=== PATIENT | female | born 1965 | race Caucasian/White ===

== ENCOUNTER 2017-09-28 15:03 | Outpatient (CLI) | payer BC ==
--- NOTE | 2017-10-02 13:10 | Mammography Report ---
DIGITAL SCREENING MAMMOGRAM: 09/28/2017 CLINICAL INDICATION: A 52-year-old with family history of breast cancer, personal history of benign left breast biopsy, for screening. COMPARISON: Films from [place], [place] dated 09/13/2016, 08/25/2016, 08/24/2015, 07/29/2014. TECHNIQUE: Routine CC and MLO projections were obtained of the breasts. FINDINGS: The breasts again demonstrate heterogeneously dense fibroglandular parenchyma bilaterally. Biopsy marker in the left upper central breast is stable. Punctate, typically benign calcifications are present. No suspicious masses, clustered microcalcifications, or regions of architectural distortion are identified. IMPRESSION: BENIGN FINDINGS. RECOMMENDATION: ROUTINE ANNUAL SCREENING UNLESS OTHERWISE CLINICALLY INDICATED. BIRADS CATEGORY 2-BENIGN FINDINGS. STANDARD QUALIFYING STATEMENTS: 1. This examination was reviewed with the aid of Computer-Aided Detection (CAD). 2. A negative or benign imaging report should not delay biopsy if clinically suspicious findings are present. Consider surgical consultation if warranted. More than 5% of cancers are not identified by imaging. 3. Dense breasts may obscure an underlying neoplasm. TD: 10/02/2017 13:10
== END 2017-09-28 15:04 | disposition home or self-care (01) ==
LOC: DI.N 15:03
PROVIDERS: ATTEND Family Medicine
DX: Z12.31 Encounter for screening mammogram for malignant neoplasm of breast (principal); Z80.3 Family history of malignant neoplasm of breast
CPT/HCPCS: 77067

== ENCOUNTER 2019-12-27 12:17 | Outpatient (CLI) | payer BC, OTHER ==
--- NOTE | 2019-12-27 13:17 | XRAY Report ---
Reason: ARTHRALGIAS Procedure Date: 12/27/2019 Accession Number: [id number] / [id number] Procedure: WCP - Hand 2 View BILAT CPT Code: Final Report FULL RESULT: PROCEDURE: Hand 2 View BILAT INDICATIONS: ARTHRALGIAS TECHNIQUE: 2 views of each hand(s) acquired. COMPARISON: None FINDINGS: Bones: No fractures or dislocations. No suspicious bony lesions. Soft tissues: No suspicious soft tissue calcifications. IMPRESSION: No evidence of arthritis. No acute fracture. No osseous lesion. If symptoms and/or clinical suspicion for pathology continue, further assessment with repeat plain films, or advanced imaging (e.g., CT, MRI, or bone scan) is recommended for further assessment. Reviewed by: Mikey Moctezuma MD on 12/27/2019 1:16 PM PDT Approved by: Mikey Moctezuma MD on 12/27/2019 1:16 PM PDT Station ID: [id number]
== END 2019-12-27 23:59 | disposition home or self-care (01) ==
LOC: DI.WCP 12:17
PROVIDERS: ATTEND Family Medicine
DX: M25.542 Pain in joints of left hand (principal); M25.541 Pain in joints of right hand

== ENCOUNTER 2021-07-22 08:00 | Outpatient (CLI) | payer OTHER | END 2021-07-22 23:59 | LOC: LAB.N 08:00 | PROVIDERS: ATTEND Physician Assistant | DX: U07.1 COVID-19 (principal) ==

== ENCOUNTER 2021-11-21 04:57 | Emergency (ER) | payer SELFPAY ==
[2021-11-21] MEDS ORDERED: SODIUM CHLORIDE 0.9% 1,000 ML IV STA (05:18)
[2021-11-21] MEDS ORDERED: ONDANSETRON 4 MG/2 ML VIAL IVP STA (05:18)
--- NOTE | 2021-11-21 05:40 | ED Physician Documentation ---
History of Present Illness - Stated complaint Stated Complaint: HIGH HR, HEADACHE - Chief complaint Chief Complaint: Neuro - History obtained from History obtained from: Patient - Additonal information Additional information: Patient is a 56-year-old female with a history of migraines, Mnire's disease and cardiac stent presenting for evaluation of frontal headache that started around 2:00. Patient reports going to bed around 930 or 10 and feeling generally unwell. She woke up around 2 with a headache, feeling her heart racing and feeling short of breath. She felt that she could not get her heart rate to slow down from 120s at home. She called her sister for help and on the drive to the emergency department she had one episode of emesis.She has not taken any medications for her symptoms. She denies chest pain. Nothing makes her symptoms better or worse. Patient denies a history of hypertension. She takes a daily aspirin and Cholesterol-lowering medication.She reports having regular dizziness due to her Mnire's disease and takes Dramamine most every morning. Review of Systems Constitutional: denies: Fever Nose: denies: Congestion Cardiac: reports: Palpitations. denies: Chest pain / pressure Respiratory: reports: Dyspnea, Cough GI: reports: Nausea, Vomiting. denies: Abdominal Pain : denies: Dysuria Skin: denies: Rash Musculoskeletal: denies: Back pain Neurologic: reports: Headache. denies: Head injury PD PAST MEDICAL HISTORY - Past Medical History Past Medical History: Yes Cardiovascular: Coronary artery disease Neuro: Migraines - Past Surgical History Past Surgical History: Yes /[employer]: Hysterectomy Cardiovascular: Coronary stent - Present Medications Home Medications: Ambulatory Orders Medication Instructions Recorded Confirmed Ondansetron Odt [Zofran] 4 mg TL Q6H PRN #10 tablet 11/21/21 - Allergies Allergies/Adverse Reactions: Allergies Allergy/AdvReac Type Severity Reaction Status Date / Time sulfamethoxazole Allergy Hives Verified 11/21/21 05:15 [From ] tramadol Allergy Hallucinati Verified 11/21/21 05:16 ons trimethoprim [From ] Allergy Hives Verified 11/21/21 05:15 - Social History Does the pt smoke?: No Smoking Status: Never smoker Does the pt drink ETOH?: Yes ETOH Use: Wine Does the pt have substance abuse?: No - Immunizations Immunizations are current?: Yes - POLST Patient has POLST: No PD ED PE NORMAL - General General: Alert and oriented X 3, No acute distress, Well developed/nourished - HEENT HEENT: Atraumatic, PERRL, EOMI, Moist mucous membranes, Pharynx benign - Neck Neck: Supple, no meningeal sign, No bony TTP - Cardiac Cardiac: No murmur, Strong equal pulses, Other (Tachycardic, regular rhythm) - Respiratory Respiratory: No respiratory distress, Clear bilaterally - Abdomen Abdomen: Normal bowel sounds, Soft, Non tender - Back Back: No spinal TTP - Derm Derm: Normal color, No rash - Extremities Extremities: No edema - Neuro Neuro: Alert and oriented X 3, 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, No motor deficit, No sensory deficit, Normal speech Eye Opening: Spontaneous Motor: Obeys Commands Verbal: Oriented GCS Score: 15 - Psych Psych: Normal mood Results - Vitals Vitals: Vital Signs - 24 hr 11/21/21 11/21/21 11/21/21 05:00 05:19 05:25 Temperature 37.1 C Heart Rate 107 H 103 H 103 H Respiratory 18 19 15 Rate Blood Pressure 190/101 H 185/112 H 185/112 H O2 Saturation 99 96 97 11/21/21 11/21/21 11/21/21 05:48 06:01 06:18 Temperature 35.7 C L Heart Rate 100 99 85 Respiratory 18 18 16 Rate Blood Pressure 176/112 H 150/100 H 161/101 H O2 Saturation 93 96 95 11/21/21 06:33 Temperature 37.0 C Heart Rate 93 Respiratory 17 Rate Blood Pressure 175/98 H O2 Saturation 96 Oxygen O2 Source Room air - EKG (time done) 0511 Rate: Rate (enter#) (103) Rhythm: Sinus tachycardia [place]: LAD. No: Normal Ischemia: No: ST elevation c/w ischemia - Labs Labs: Laboratory Tests 11/21/21 11/21/21 11/21/21 05:10 05:10 05:10 WBC 14.3 H RBC 5.18 Hgb 15.5 Hct 46.8 MCV 90.3 MCH 29.9 MCHC 33.1 RDW 11.9 L Plt Count 211 MPV 10.7 Neut # (Auto) 12.4 H Lymph # (Auto) 1.1 L Branch # (Auto) 0.6 Eos # (Auto) 0.2 Baso # (Auto) 0.0 Absolute Nucleated RBC 0.00 Nucleated RBC % 0.0 D-Dimer Sodium 138 Potassium 3.6 Chloride 102 Carbon Dioxide 25 Anion Gap 11.0 BUN 20 Creatinine 0.9 Estimated GFR (MDRD) 64 L Glucose 111 H Calcium 9.2 Total Bilirubin 0.8 AST 27 ALT 29 Alkaline Phosphatase 111 Troponin I High Sens 2.9 Total Protein 7.6 Albumin 4.3 Globulin 3.3 Albumin/Globulin Ratio 1.3 Lipase 35 11/21/21 06:01 WBC RBC Hgb Hct MCV MCH MCHC RDW Plt Count MPV Neut # (Auto) Lymph # (Auto) Branch # (Auto) Eos # (Auto) Baso # (Auto) Absolute Nucleated RBC Nucleated RBC % D-Dimer < 200.0 L Sodium Potassium Chloride Carbon Dioxide Anion Gap BUN Creatinine Estimated GFR (MDRD) Glucose Calcium Total Bilirubin AST ALT Alkaline Phosphatase Troponin I High Sens Total Protein Albumin Globulin Albumin/Globulin Ratio Lipase PD MEDICAL DECISION MAKING - ED course Complexity details: reviewed results, re-evaluated patient, d/w patient, d/w family ED course: Patient is a 56-year-old female presenting for evaluation of headache and palpitations.She is slightly tachycardic upon arrival. Her neurologic exam is normal. Patient was noted to have elevated blood pressure readings. In the setting of headache, I did obtain a head CT which is negative for intracranial hemorrhage. Patient does not have meningismus to suggest subarachnoid hemorrhage or meningitis. Do not think she needs a lumbar puncture at this time.EKG demonstrates sinus tachycardia.Labs obtained. D-dimer is negative.High-sensitivity troponin is also very low. Her symptoms would be very atypical for ACS.Patient had significant improvement with migraine cocktail.Her tachycardia and elevated blood pressure readings also improved. Patient is to have close follow-up with her primary care doctor and is aware of return preca utions. Departure - Departure Disposition: 01 Home, Self Care Clinical Impression: Elevated blood pressure reading Migraine Qualifiers: Migraine type: unspecified Status migrainosus presence: without status migrainosus Intractability: not intractable Qualified Code(s): G43.909 - Migraine, unspecified, not intractable, without status migrainosus Condition: Stable Instructions: ED Headache Migraine, ED Hypertension Poss Prescriptions: Ondansetron Odt [Zofran] 4 mg TL Q6H PRN #10 tablet PRN Reason: Nausea / Vomiting Comments: [place] - Your blood pressure was elevated today on check into the emergency department. This does not mean that you have hypertension, it is a common phenomenon to come to the emergency department and have elevated blood pressure. I recommend that you see your primary care physician within the week to have it rechecked when you are feeling better. You were also evaluated for a headache. CT scan of your brain was done with no acute findings.You received a medicine through your IV to treat your migraine. I have also sent nausea medication to the [facility] pharmacy in [place]. Please continue to rest and hydrate yourself today. Your heart rate was also slightly elevated But it has gotten better. Your labs were checked and did not show signs of a blood clot or heart attack. Your chest x-ray was also clear and did not show pneumonia or fluid in your lungs. Please follow-up with your primary care doctor. If at anytime at your symptoms return or you have any new concerns please return to the emergency department.
[2021-11-21] MEDS ORDERED: diphenhydrAMINE INJ 50 MG/ML VIAL IVP STA (05:47)
[2021-11-21] MEDS ORDERED: KETOROLAC 30 MG/ML VIAL IVP STA (05:47)
[2021-11-21] MEDS ORDERED: METOCLOPRAMIDE 10 MG/2 ML VIAL IVP STA (05:47)
[2021-11-21 06:08] LABS: BASOPHILS % (AUTO) 0.3 %; EOSINOPHILS # (AUTO) 0.2 10^3/uL (0.0-0.7); EOSINOPHILS % (AUTO) 1.2 %; HCT - HEMATOCRIT 46.8 % (37.0-47.0); HGB - HEMOGLOBIN 15.5 g/dL (12.0-16.0); LYMPHOCYTES # (AUTO) 1.1 10^3/uL (1.5-3.5); LYMPHOCYTES % (AUTO) 7.3 %; MEAN CORPUSCULAR HEMOGLOBIN 29.9 pg (27.0-31.0); MEAN CORPUSCULAR HGB CONC 33.1 g/dL (32.0-36.0); MEAN CORPUSCULAR VOLUME 90.3 fL (81.0-99.0); MEAN PLATELET VOLUME 10.7 fL (7.9-10.8); MONOCYTES # (AUTO) 0.6 10^3/uL (0.0-1.0); MONOCYTES % (AUTO) 4.5 %; NEUTROPHILS # (AUTO) 12.4 10^3/uL (1.5-6.6); NEUTROPHILS % (AUTO) 86.4 %; PLT - PLATELET COUNT 211 10^3/uL (130-450); RED BLOOD COUNT 5.18 10^6/uL (4.20-5.40); RED CELL DISTRIBUTION WIDTH 11.9 % (12.0-15.0); WHITE BLOOD COUNT 14.3 x10^3/uL (4.8-10.8)
[2021-11-21 06:21] LABS: ALBUMIN 4.3 g/dL (3.2-5.5); ALBUMIN/GLOBULIN RATIO 1.3 (1.0-2.2); BILIRUBIN,TOTAL 0.8 mg/dL (0.2-1.0); CALCIUM 9.2 mg/dL (8.5-10.3); CREATININE 0.9 mg/dL (0.4-1.0); POTASSIUM 3.6 mmol/L (3.5-5.0); TOTAL PROTEIN 7.6 g/dL (6.7-8.2)
[2021-11-21 06:35] VITALS: BP 175/98
--- NOTE | 2021-11-21 08:03 | XRAY Report ---
PROCEDURE: Chest 1 View X-Ray INDICATIONS: Shortness of breath TECHNIQUE: One view of the chest was acquired. COMPARISON: None FINDINGS: Surgical changes and devices: None. Lungs and pleura: No pleural effusions or pneumothorax. Lungs are clear. Mediastinum: The aorta is prominent and tortuous. The cardiac contours are within normal limits. Bones and chest wall: No suspicious bony lesions. Overlying soft tissues appear unremarkable. IMPRESSION: Portable chest within normal limits for age. Note: No significant discrepancy from the preliminary report. Reviewed by: Wilian Sanchez MD on 11/21/2021 7:02 AM RUPERT Approved by: Wilian Sanchez MD on 11/21/2021 7:02 AM RUPERT Station ID: [id number]
--- NOTE | 2021-11-21 08:07 | CT Report ---
PROCEDURE: HEAD WO INDICATIONS: headache TECHNIQUE: Noncontrast 4.5 mm thick angled axial sections acquired from the foramen magnum to the vertex. For r adiation dose reduction, the following was used: automated exposure control, adjustment of mA and/or kV according to patient size. COMPARISON: None. FINDINGS: Image quality: There is streak artifact seen through the skull base. CSF spaces: Basal cisterns are patent. No extra-axial fluid collections. Ventricles are normal in size and shape. Brain: No midline shift. No intracranial masses or hemorrhage. Ag-white matter interface is norm al. Skull and face: A focal scalp soft tissue lesion is seen involving the anterior left scalp, as on se ovi 3 image 23 and on series 4 image 7 measuring 8 mm. Calvarium and visualized facial bones are int act, without suspicious lesions. Sinuses: Visualized sinuses and mastoids are clear. IMPRESSION: Unremarkable intracranial study, without a cause of headache identified. 8 mm left anterior scalp lesion incidentally noted. Please correlate with physical examination findin gs. Note: No significant discrepancy from the preliminary report. Reviewed by: Wilian Sanchez MD on 11/21/2021 7:06 AM RUPERT Approved by: Wilian Sanchez MD on 11/21/2021 7:06 AM RUPERT Station ID: [id number]
== END 2021-11-21 06:50 | disposition home or self-care (01) ==
LOC: ED 04:57
DX: G43.909 Migraine, unspecified, not intractable, without status migrainosus (principal); R03.0 Elevated blood-pressure reading, without diagnosis of hypertension; Z95.5 Presence of coronary angioplasty implant and graft
CPT/HCPCS: 36415; 70450; 71045; 80053; 83690; 84484; 85025; 85379; 93005; 96374; 96375; 99284; 99285; J1200; J2765